=== PATIENT | female | born 1970 ===

== ENCOUNTER 2023-01-10 03:02 | Outpatient (CLI) | payer BC, SELFPAY ==
[2023-01-10 15:21] LABS: FREE T4 0.72 ng/dL (0.76-1.46); TSH 23.85 uIU/mL (0.36-3.74)
[2023-01-10 22:12] LABS: T3,Free 3.3 pg/mL (2.8-5.3)
== END 2023-01-10 03:03 | disposition home or self-care (01) ==
LOC: LBO 03:02
PROVIDERS: PCP Naturopath; Visit Provider Naturopath
DX: E03.9 Hypothyroidism, unspecified (principal)
CPT/HCPCS: 36415; 84439; 84443; 84481